=== PATIENT | female | born 2000 | race Caucasian/White ===

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

== ENCOUNTER 2019-07-07 19:14 | Emergency (ER) | payer SELFPAY ==
[~2019-07-07] VITALS: Ht 170.2 cm; Wt 68.2 kg
[2019-07-07 19:39] VITALS: BP 135/69; TEMP 97.8
[2019-07-07 21:25] VITALS: PULSE 71
== END 2019-07-07 21:25 | disposition home or self-care (01) ==
LOC: COL.ER 19:14
DX: S00.93XA Contusion of unspecified part of head, initial encounter (principal); R40.2412 Glasgow coma scale score 13-15, at arrival to emergency department; W22.8XXA Striking against or struck by other objects, initial encounter; Y92.59 Other trade areas as the place of occurrence of the external cause

== ENCOUNTER → 2019-12-17 | Outpatient (CLI) | payer BC | LOC: COL.RAD 11:49 | DX: R10.2 Pelvic and perineal pain (principal); Z97.5 Presence of (intrauterine) contraceptive device ==